=== PATIENT | female | born 1960 | race Caucasian/White ===

== ENCOUNTER 2022-04-14 13:28 | Inpatient (IN) | payer MEDICARE, MEDICAID ==
[~2022-04-14] VITALS: Ht 157.5 cm; Wt 63.0 kg
[2022-04-14 14:32] LABS: BASOPHILS % 0.7 % (0.0-2.0); EOSINOPHILS % 2.4 % (0.0-5.0); HEMOGLOBIN. 12.4 g/dL (12.0-16.0); MEAN CORPUSCULAR HEMOGLOBIN 28.9 pg (28.0-32.0); MEAN CORPUSCULAR VOLUME 86.1 fL (81.0-99.0); MEAN PLATELET VOLUME 7.6 fl (7.4-10.4); MONOCYTES % 6.1 % (2.0-8.0); NEUTROPHILS % 67.8 % (40.0-76.0); PLATELET 360 x1000/uL (130-400); RED CELL DISTRIBUTION WIDTH 13.3 % (11.6-14.6)
[2022-04-14 14:41] LABS: CHLORIDE 111 mEq/L (98-107)
[2022-04-14 18:05] VITALS: BP 157/79
[2022-04-14] MEDS ORDERED: MAGNESIUM/ALUMINUM HYDROXIDE/SIMETHICONE 30ML UDC PO PRN (18:15)
[2022-04-14] MEDS ORDERED: IPRATROPIUM/ALBUTEROL 0.5-3(2.5)MG/3ML NEB NEB PRN (18:15)
[2022-04-14] MEDS ORDERED: GUAIFENESIN 200MG/10ML SUGAR FREE UDC PO PRN (18:15)
[2022-04-14] MEDS ORDERED: ONDANSETRON HCL 4MG/2ML INJ IV PRN (18:15)
[2022-04-14] MEDS ORDERED: CLONIDINE 0.1MG TABLET PO PRN (18:15)
[2022-04-14] MEDS ORDERED: ACETAMINOPHEN 325MG TABLET PO PRN ×2 (18:15)
[2022-04-14] MEDS ORDERED: HYDROCODONE/ACETAMINOPHEN 5/325MG TABLET PO PRN (18:15)
[2022-04-14] MEDS ORDERED: LISI10TA26 MT (18:42)
[2022-04-14] MEDS ORDERED: LORA-249 MT (18:42)
[2022-04-14] MEDS ORDERED: ATOR10TA69 MT (18:42)
[2022-04-14 20:00] VITALS: BP 131/57
[2022-04-14] MEDS ORDERED: ENOXAPARIN 40MG/0.4ML SYR SUBCUT SCH (20:00)
[2022-04-14] MEDS ORDERED: LISINOPRIL 10MG TABLET PO SCH (20:00)
[2022-04-14] MEDS ORDERED: REGADENOSON 0.4 MG/5 ML IV SCH (20:45)
[2022-04-14] MEDS ORDERED: ATORVASTATIN CALCIUM 10MG TABLET PO SCH (21:00)
[2022-04-14 22:53] VITALS: BP 131/57
[2022-04-15] VITALS: BP 140/75
[2022-04-15 04:00] VITALS: BP 129/72
[2022-04-15 06:38] LABS: BASOPHILS % 0.7 % (0.0-2.0); EOSINOPHILS % 3.6 % (0.0-5.0); HEMATOCRIT. 35.6 % (36.0-48.0); HEMOGLOBIN. 11.9 g/dL (12.0-16.0); LYMPHOCYTES % 36.1 % (20.0-50.0); MEAN PLATELET VOLUME 7.8 fl (7.4-10.4); MONOCYTES % 6.9 % (2.0-8.0); NEUTROPHILS % 52.7 % (40.0-76.0); PLATELET 331 x1000/uL (130-400); RED BLOOD CELL COUNT 4.09 mill/uL (4.2-5.4); RED CELL DISTRIBUTION WIDTH 13.4 % (11.6-14.6)
[2022-04-15 07:51] LABS: CHLORIDE 107 mEq/L (98-107)
[2022-04-15 08:09] VITALS: BP 118/75
[2022-04-15 08:11] LABS: PHOSPHORUS 3.9 mg/dL (2.5-4.9); T4 FREE 0.99 ng/dL (0.76-1.46)
[2022-04-15] MEDS ORDERED: LISINOPRIL 10MG TABLET PO SCH (09:00)
[2022-04-15 12:00] VITALS: BP 132/67
[2022-04-15 16:00] VITALS: BP 137/83
[2022-04-15 17:26] VITALS: BP 137/83
[2022-04-15] MEDS ORDERED: ATORVASTATIN CALCIUM 10MG TABLET PO SCH (21:00)
== END 2022-04-15 18:33 | disposition home or self-care (01) | DRG 206 ==
LOC: ER 13:28 → EDBEDREQTM 16:49 → EDBEDREQ 16:49 → ENRESERV 17:09 → SUPCPDRO 18:02 → 8WST 18:12
PROVIDERS: ADMIT Internal Medicine; ATTEND Internal Medicine
PROC: 4A02XM4 Measurement of Cardiac Total Activity, External Approach (ICD-10-PCS; principal; 2022-04-15)
PROC: 3E033HZ Introduction of Radioactive Substance into Peripheral Vein, Percutaneous Approach (ICD-10-PCS; 2022-04-15)
DX: M94.0 Chondrocostal junction syndrome [Tietze] (principal); I10 Essential (primary) hypertension; E78.00 Pure hypercholesterolemia, unspecified; Z20.822 Contact with and (suspected) exposure to COVID-19; F41.9 Anxiety disorder, unspecified; E78.5 Hyperlipidemia, unspecified
CPT/HCPCS: 36415; 71045; 78452; 80048; 80053; 83735; 83880; 84100; 84439; 84443; 84484; 85025; 85379; 87426; 93005; 93017; 93306; 99285; A9500; J1650; J2785